=== PATIENT | female | born 1990 | race Caucasian/White ===

== ENCOUNTER → 2024-09-20 11:04 | Outpatient (REF) | payer OTHER, SELFPAY | LOC: HWRAD 11:04 | PROVIDERS: ATTENDING PHYSICIAN Otolaryngology; FAMILY PHYSICIAN Family Medicine | DX: J32.0 Chronic maxillary sinusitis (principal) | CPT/HCPCS: 70486 ==

== ENCOUNTER 2024-10-08 18:34 | Emergency (ER) | payer OTHER, SELFPAY ==
[2024-10-08] VITALS (7 sets, daily range): BP systolic 97–139; BP diastolic 55–84; BMI 26.4
[2024-10-08] MEDS: TYLENOL 1000 MG PO (18:53)
[2024-10-08 18:56] LABS: % Basophils 0.2 % (0-2); % Immature Granulocytes 0.4 % (0-0.5); % Lymphocytes 6.4 % (20.5-51.1); % Monocytes 5.9 % (1.7-9.3); % Neutrophils 87.1 % (42.2-75.2); Absolute Immature Granulocytes 0.1 10^3/uL (0-0.05); Absolute Lymphocytes 1.2 10^3/uL (1.2-3.4); Absolute Monocytes 1.1 10^3/uL (0.1-0.6); Absolute Neutrophils 16.2 10^3/uL (1.4-6.5); Hematocrit 41.6 % (37.0-47.0); Hemoglobin 14.2 g/dL (12.0-16.0); Mean Corp Hgb Conc. 34.1 g/dL (33.0-37.0); Mean Corpuscular Hgb 29.9 pg (27.0-31.0); Mean Corpuscular Volume 87.6 fL (81.0-99.0); Mean Platelet Volume 9.8 fL (7.4-10.4); Nucleated Red Blood Cells % 0 %; Platelet Count 232 10^3/uL (130-400); Red Blood Cell Count 4.75 10^6/uL (4.20-5.40); White Blood Cell Count 18.6 10^3/uL (4.8-10.8)
[2024-10-08 19:20] LABS: ALT (SGPT) 20 U/L (0-35); AST (SGOT) 23 U/L (14-36); Albumin 4.2 g/dl (3.5-5.0); Alkaline Phosphatase 73 U/L (38-126); Blood Urea Nitrogen 7 mg/dl (7-17); Calcium 8.8 mg/dl (8.4-10.2); Carbon Dioxide 25 mmol/L (22-30); Chloride 99 mmol/L (98-107); Glucose 124 mg/dl (70-99); Potassium 3.7 mmol/L (3.5-5.1); Sodium 136 mmol/L (135-145); Total Bilirubin 0.6 mg/dl (0.2-1.3); Total Protein 7.2 g/dl (6.3-8.2); eGFR > 60.00
--- NOTE | 2024-10-08 19:44 | ED.GENMED ---
History of Present Illness
General
Chief Complaint: Throat Problem
Source: patient
Exam Limitations: none
Time Seen by Provider: 10/08/24 19:34
Nursing documentation reviewed up to this point in time: agreed with
History of Present Illness
History of Present Illness:
34-year-old female with past medical history of anxiety who presents to the emergency department for evaluation of sore throat; she was referred from urgent care with concern for peritonsillar abscess. Patient reports that she has been feeling
unwell for the past 48 hours. She reports that she has had sore throat which is consistent, worse with swallowing and breathing. She reports that she has had dry cough. She says she has had bodyaches, high fever with a Tmax of 103 �F. She went
to urgent care to be evaluated and she says she had a rapid strep test which was positive and they were concerned she could have a [employer] based on exam and was sent to the ER.
Past History
Past History
ED Past Medical History: Psychiatric
ED Past Surgical History: Tonsilectomy
Social History
Tobacco: Non-smoker
Alcohol: Occasional
Drug: Narcotics and IVDA
Personal:
Living: with family
Family History
Family History: Other
Review of Systems
Review of Systems
All Other Systems: ROS reviewed and negative except as documented in HPI and ROS
Constitutional: Reports fever, fatigue and chills
EENT: Reports sore throat and runny nose
Respiratory: Reports cough; Denies trouble breathing
Cardiac: Denies chest pain
ABD/GI: Denies vomiting
Musculoskeletal: Reports muscle pain (Myalgias)
Phy Exam
Physical Exam
Physical Exam:
General: Awake, alert, oriented x3; no acute distress
Head: Normocephalic, atraumatic
Eyes: Conjunctiva normal, pupils equal round and reactive to light bilaterally
Throat: Airway intact, dry mucous membranes, tonsillar erythema and enlargement, left much greater than right with deviation of the uvula towards the right
Neck: Trachea midline, left greater than right cervical adenopathy
Lungs: Clear to auscultation bilaterally, no wheezing, rales, rhonchi; occasional coughing
Heart: Tachycardia with regular rhythm, no murmurs, gallops, or rubs
Neuro: No gross deficits
Skin: no rash
Extremities: Atraumatic, warm well-perfused
Scores
Heart Failure Risk
Heart Failure Risk Score: Not Applicable
Heart Score for Chest Pain Patients
STEMI patient?: Not applicable
Withdrawal Assessment of Alcohol
Withdrawal Assessment Completed?: Not applicable
Sepsis
Sepsis Screening
Sepsis Assessment: Sepsis Ruled Out
Sepsis Screen
Sepsis Screen: Sepsis Ruled Out
Date: 10/09/24
Time: 02:36
Course
Orders/Labs/Results
Orders:
Orders
10/08/24 18:48
CMP [Comprehensive Metabolic Panel] Urgent
Complete Blood Count/With Diff Urgent
10/08/24 18:51
Acetaminophen [Tylenol] 1,000 mg .ROUTE .STK-MED ONE
10/08/24 18:53
Acetaminophen [Tylenol] 1,000 mg PO NOW STA
10/08/24 19:35
CT Neck With Iv Contrast Urgent
Comment:
Reason For Exam: sore throat, tonsillar asymmetry, c/f abscess
Test Result ONCE
10/08/24 19:42
Clindamycin HCl [Cleocin] 450 mg PO NOW STA
Dexamethasone Sod Phosphate [Decadron] 10 mg IV NOW STA
Ketorolac [Toradol] 15 mg IV NOW STA
10/08/24 19:43
0.9% Sodium Chloride 1000 ml [Nss] 1,000 ml IV BOLUS
10/08/24 20:05
HCG, Serum Qualitative Screen Urgent
Monotest Urgent
10/08/24 22:41
CR Chest - 2 Views Urgent
Comment:
Reason For Exam: cough, c/f pneumonia
10/08/24 23:29
Amoxicillin 875 mg/Clav 125 mg [Augmentin 875 mg/125 mg] 1 tablet PO NOW STA
Azithromycin [Zithromax] 500 mg PO NOW STA
10/08/24 23:31
Electrocardiogram (*1) Urgent
Reason for Study: QTc Monitoring
EKG- Treatment ONCE
Abnormal Lab Results
10/08/24
18:48
WBC 18.6 H 10^3/uL
(4.8-10.8)
Abs Immat Gran (auto) 0.1 H 10^3/uL
(0-0.05)
Absolute Neuts (auto) 16.2 H 10^3/uL
(1.4-6.5)
Absolute Monos (auto) 1.1 H 10^3/uL
(0.1-0.6)
Neutrophils % 87.1 H %
(42.2-75.2)
Lymphocytes % 6.4 L %
(20.5-51.1)
Glucose 124 H mg/dl
(70-99)
10/08/24 18:48
10/08/24 18:48
Vital Signs
Initial and Last Documented VS:
Initial Vital Signs
Temp Pulse Resp BP Pulse Ox
39.4 C H 128 18 139/84 98
10/08/24 18:41 10/08/24 18:41 10/08/24 18:41 10/08/24 18:41 10/08/24 18:41
Last Documented Vital Signs
Temp Pulse Resp BP Pulse Ox
36.8 C 80 18 106/67 97
10/08/24 23:59 10/08/24 23:33 10/08/24 18:41 10/09/24 00:00 10/09/24 00:29
MDM/Problems Addressed
Differential Diagnosis Includes:
Peritonsillar abscess, tonsillitis/pharyngitis, RPA
MDM/Problems Addressed:
34-year-old female presents for evaluation of fever, malaise, sore throat over the past 48 hours; sent from urgent care after positive strep test and exam concerning for peritonsillar abscess. She is tachycardic and febrile here; exam as above
notable for uvular deviation and asymmetric tonsils. She had lab work sent in triage including a CBC which showed a leukocytosis to 18.6. CMP no clinically significant abnormalities. Will plan to send for a CT of the neck. Will provide IV
fluids. Treat with Toradol, Decadron, antibiotics. Will monitor closely reassess after the above.
CT of the neck reviewed: Negative for peritonsillar abscess but there was suggestion of pneumonia on lung apices�will check chest x-ray.
Chest x-ray does show signs consistent with perihilar pneumonia. Clinical reassessment patient's vital signs and greatly improved with ED treatment. Her blood pressure is normal, heart rate normal, respiratory rate normal, afebrile, normal pulse
ox on room air. Although she did have a leukocytosis she has no other SIRS criteria present to suggest sepsis from pneumonia. CURB 65 score would be 0. I think she is a reasonable candidate for outpatient antibiotics nevertheless I did offer
admission for observation on IV antibiotics. Patient feels well enough for discharge for trial of oral antibiotics. I did advise her that she should have a follow-up chest x-ray to ensure resolution and that if her symptoms are worsening she
should immediately return to the ER. She received some clindamycin initially for strep but given this finding of pneumonia we will switch to Augmentin and add azithromycin as well.
*Radiology
Radiology exam reviewed: radiology read reviewed
*Pulse Oximetry
Patient hypoxic: no
*EKG
Interpreted by ED Provider?: Yes
Comparison EKG: no changes
Heart Rate: 89
Rate: normal
Rhythm: sinus
Circle: normal axis
Interval: normal interval
QRS Pattern: normal QRS
Ischemia: non-specific ST changes
*Critical Care Note
Total Time (30-74mins, 75-104mins- exclusive of procedures): Not Applicable
Data Reviewed
Source: patient
Patient Management
Escalation/DeEscalation of care consider admission/obs:
Offered admission, using shared decision making opted for discharge on oral antibiotics
ED Attending Note
-
Portions of this chart may have been created with voice recognition software.� Occasional wrong word or��sound alike� substitutions may have occurred due to the inherent limitations of voice recognition software.
Discharge Plan
Departure
Patient Disposition: Home (Routine Discharge)
Date of Disposition: 10/08/24
Time of Disposition: 23:55
Patient with high blood pressure during this ER visit?: No
Discharge Problem:
Acute tonsillitis, Pneumonia
Instructions: Pneumonia in adults, Strep Throat (DC)
Prescriptions:
New
amoxicillin-pot clavulanate 875-125 mg tablet
1 tab PO BID 7 Days Qty: 14 0RF
azithromycin [Zithromax] 250 mg tablet
250 mg PO DAILY Qty: 4 0RF
No Action
alprazolam 0.5 MG tablet
1 mg PO TID
Patient Comments:
12/19 Mother stated Pt. takes her boyfriend's Xanax
Referrals:
Annetta Medina MD [Family Provider] - Follow up in 2-3 days
Activity Restrictions/Additional Instructions:
You were seen in the emergency room and diagnosed with strep throat as well as pneumonia. You were given medicines here in the emergency room and prescribed antibiotics which she should take as prescribed. It is very important that if your
symptoms are getting worse at any point you should return immediately to the emergency room, especially if you are having worsening shortness of breath or chest pain. You should have a follow-up chest x-ray within the next 7 to 10 days to ensure
that your pneumonia is improving. You should call to schedule an appoint with your primary doctor to have this test done. You should take Tylenol and ibuprofen to control your fever and drink plenty of fluids.
Thank you for visiting the Emergency Department at [facility].
1. Please schedule a follow up appointment as directed. Call first thing tomorrow morning to make an appointment.
2. If indicated, please take your medications as instructed and indicated on discharge paperwork.
3. If any of your symptoms do not improve, or persist, or become more severe within 6-12 hours, please return to the emergency department for further care.
4. Please return to the emergency department if you develop a headache, neck pain/stiffness, fever greater than 100.4F, chest pain, shortness of breath, persistent nausea, vomiting, slurred speech, difficulty walking, numbness/tingling, weakness,
signs of infection or any other symptoms that are worrisome to you.
Please call [phone] if you have any questions.
Interventions
Interventions:
*Risk Screen - Suicide Last Done: 10/08/24 18:41
*General Assessment Last Done: 10/08/24 18:41
*Neglect/Abuse Screening Last Done: 10/08/24 18:41
ED- Fall Risk Assessment Last Done: 10/08/24 20:22
*ED COVID-19 Vaccine History Last Done: 10/08/24 18:41
*Nursing Disposition Last Done: 10/09/24 00:29
ED-EENT Assessment Last Done: 10/08/24 20:22
ED- Pulmonary Assessment Last Done: 10/08/24 20:22
Discharge Date and Time
Discharge Date/Time: 10/09/24 00:33
Print Language: VIETNAMESE
[2024-10-08] MEDS: CLEOCIN 450 MG PO (20:07)
[2024-10-08] MEDS: TORADOL 15 MG IV (20:09)
[2024-10-08] MEDS: DECADRON 10 MG IV (20:10)
[2024-10-08] MEDS: NSS 1000 IV (20:11)
[2024-10-08 20:36] LABS: HCG, Serum Qualitative Screen Negative
[2024-10-08 20:42] LABS: Monotest Negative (Negative)
[2024-10-08] MEDS: ZITHROMAX 500 MG PO (23:39)
[2024-10-08] MEDS: AUGMENTIN 875 MG/125 MG 1 TABLET PO (23:41)
[2024-10-09] VITALS: BP 106/67
== END 2024-10-09 00:33 | disposition home or self-care (01) ==
LOC: EMR 18:34
PROVIDERS: Student in an Organized Health Care Education/Training Program; EMERGENCY PHYSICIAN Emergency Medicine; FAMILY PHYSICIAN Family Medicine
DX: J03.00 Acute streptococcal tonsillitis, unspecified (principal); J18.9 Pneumonia, unspecified organism
CPT/HCPCS: 96374; 96375; 96361; 99284; 70491; 71046; 80053; 84703; 85025; 86308; 93005; Q9967

== ENCOUNTER 2025-03-12 20:02 | Emergency (ER) | payer OTHER, SELFPAY ==
--- NOTE | 2025-03-12 20:05 | EDRN ---
Patient came in with police and is talking to people who aren't there, she just keeps taking off her clothing, with assistance of security and police patient was changed into blue scrubs, police are here and over talking with parents who are filing
302, attempting to redirect patient, however patient is not cooperative or in right state of mind at this time, she keeps talking about someone taking her baby. Parents told crisis that for the past 5 days she has been hearing voices, not eating or
showering or taking care of her kids, nor has she slept much in a few days. Medication ordered to be given at this time as well to attempt to calm patient down.
--- NOTE | 2025-03-12 20:05 | ED.GENMED ---
History of Present Illness
General
Chief Complaint: Crisis Evaluation
Time Seen by Provider: 03/12/25 20:04
History of Present Illness
History of Present Illness:
TIME OF INITIAL ENCOUNTER: 8 PM
HPI: I initially spoke to [facility] police. The patient was found outside screaming in a residential neighborhood not her own. She was ultimately brought to the [facility] for psychiatric evaluation. I spoke to the parents who
tells me that the patient does have a history of anxiety and depression. She is on Suboxone for history of substance abuse. She takes gabapentin, 2 different benzos, Wellbutrin. Her mental status has deteriorated over the last 5 days or so. She
has a boyfriend who is not currently in the picture. She reportedly had a bad reaction to Haldol in the past.
EXAM:
GENERAL: The patient is clearly in a manic state
HEENT: Markedly dry oral mucosa
CARDIOVASCULAR: No murmurs, tachycardic heart rate, regular rhythm, No chest wall tenderness
PULMONARY: Tachypnea related to agitation, breath sounds are clear and equal
ABDOMEN: Soft with no peritoneal signs, no tenderness
NEUROLOGIC: Excellent strength all extremities, no coordination deficits, no clonus
PSYCHIATRIC: Could not answer questions appropriately, manic, pressured speech, does not follow simple commands, appears extremely anxious, tangential thoughts, poor focus
EXTREMITIES: Nontender, no edema, tachycardic all extremities equally
SKIN: No rash, no lesions
NUMBER AND COMPLEXITY OF PROBLEMS ADDRESSED AT THE ENCOUNTER
� Chronic conditions affecting care: Anxiety/depression, history of opioid use disorder on Suboxone
� Acute Exacerbation and/or Progression of Chronic Illness: This is an acute problem
� Differential Diagnosis includes: Acute psychosis, medication interaction, alcohol intoxication, infection unlike
AMOUNT AND/OR COMPLEXITY OF DATA TO BE REVIEWED AND ANALYZED
� I performed an independent evaluation of and my interpretation is:
EKG: Sinus 118, nonspecific ST abnormality
CT:
X-rays:
Laboratory Studies: CBC unremarkable, bicarb 17, CK normal, salicylates and acetaminophen undetected, no alcohol detected, UDS pending
Other:
� Review of other/old records: I reviewed records, the patient was here in 2017 after an unintentional heroin overdose who briefly was given compressions in the setting of depression and was seen by crisis at that time
but patient was ultimately discharged. At that time she had a dystonic reaction to Haldol
� Clinical information was obtained by an independent historian: I spoke to parents and policeman from [facility]
� Prescriptions/Medications Considered but not given:
� Further testing considered but not performed:
RISK OF COMPLICATIONS AND/OR MORBIDITY OR MORTALITY OF PATIENT MANAGEMENT
� Social determinants of health affecting care: Former history of drug abuse unclear of recent use
� Discussion with other providers: I spoke to crisis
� Escalation of care including admission/observation vs risk of discharge considered:
ANY OTHER UPDATES:
9 PM: I reassessed patient, patient appears slightly more sedate but appears delusional and paranoid. Poor focus and logic.
12 AM: Overall improving. Seen by telepsych. Recommending inpatient. She did receive Zyprexa initially and then benzos. I do have some concern for the possibility of benzo withdrawal and patient brought this up as well.
1:30 AM: I spoke to crisis and patient has been accepted at [facility] transport between 4 and 5 AM.
Past History
Past History
ED Past Medical History: Psychiatric
ED Past Surgical History: Tonsilectomy
Social History
Tobacco: Non-smoker
Alcohol: Occasional
Drug: Narcotics and IVDA
Personal:
Living: with family
Family History
Family History: Other
Phy Exam
Physical Exam
Physical Exam:
See HPI
Course
Orders/Labs/Results
Orders:
Orders
03/12/25 20:00
1:1 Observation - Suicide/ Violent Behavior As Directed
03/12/25 20:04
Drug Screen, Urine [Urine Drug Abuse Screen] Urgent
Date Specimen was Collected: 03/12/25
Time Specimen was Collected: 20:35
Olanzapine [Zyprexa] 10 mg IM NOW STA
03/12/25 20:05
Test Result ONCE
03/12/25 20:12
Lorazepam [Ativan] 2 mg IV NOW STA
03/12/25 20:15
Electrocardiogram (*1) Urgent
Reason for Study: QTc Monitoring
EKG- Treatment ONCE
03/12/25 20:32
Lorazepam [Ativan] 2 mg IM NOW STA
03/12/25 20:43
Acetaminophen Urgent
Alcohol Urgent
Complete Blood Count/With Diff Urgent
Comprehensive Metabolic Panel Urgent
HCG, Serum Qualitative Screen Urgent
Salicylate Urgent
Total CK [Creatine Phosphokinase] Urgent
03/12/25 20:51
0.9% Sodium Chloride 1000 ml [Nss] 1,000 ml IV BOLUS
03/12/25 21:00
Restraints - Violent As Directed
Restraint Type-: Locked-4 point/4 rails
Apply From (date): 03/12/25
Apply from (time): 21:00
Remove (date): 03/13/25
Remove (time): 01:00
03/12/25 21:01
Lorazepam [Ativan] 2 mg IV NOW STA
03/12/25 23:08
0.9% Sodium Chloride 1000 ml [Nss] 1,000 ml IV BOLUS
03/13/25 02:19
Fentanyl, Urine Urgent
Abnormal Lab Results
03/12/25 03/13/25
20:43 02:19
Absolute Neuts (auto) 7.4 H 10^3/uL
(1.4-6.5)
Absolute Monos (auto) 0.8 H 10^3/uL
(0.1-0.6)
Potassium 3.3 L mmol/L
(3.5-5.1)
Chloride 109 H mmol/L
(98-107)
Carbon Dioxide 17 L mmol/L
(22-30)
Glucose 169 H mg/dl
(70-99)
Salicylates < 1.0 L mg/dl
(2.0-20.0)
Ur Buprenorphine Positive H
(Negative)
Acetaminophen < 10 L ug/ml
(10-30)
U Methamphetamines Scrn Positive H
(Negative)
U Benzodiazepines Scrn Positive H
(Negative)
03/12/25 20:43
03/12/25 20:43
Vital Signs
Pulse: 118
Initial and Last Documented VS:
Initial Vital Signs
Pulse Resp BP Pulse Ox
163 20 201/115 98
03/12/25 20:10 03/12/25 20:10 03/12/25 20:10 03/12/25 20:10
Last Documented Vital Signs
Temp Pulse Resp BP Pulse Ox
36.8 C 124 18 129/90 98
03/12/25 21:00 03/12/25 22:41 03/12/25 22:41 03/12/25 22:41 03/12/25 22:41
*Critical Care Note
Total Time (30-74mins, 75-104mins- exclusive of procedures): Not Applicable
ED Attending Note
-
Portions of this chart may have been created with voice recognition software.� Occasional wrong word or��sound alike� substitutions may have occurred due to the inherent limitations of voice recognition software.
Discharge Plan
Departure
Patient Disposition: Psych Facility
Date of Disposition: 03/13/25
Time of Disposition: 00:03
Patient with high blood pressure during this ER visit?: Yes
Discharge Problem:
Acute psychosis
Prescriptions:
No Action
clonazepam 1 mg Tablet
1 mg PO TID
alprazolam [Xanax] 0.25 mg Tablet
0.25 mg PO PRN PRN (Reason: anxiety)
buprenorphine HCl [Subutex] 8 mg Tablet, Sublingual
8 mg SUBLINGUAL DAILY
buprenorphine HCl [Subutex] 8 mg Tablet, Sublingual
4 mg SUBLINGUAL HS
bupropion HCl [Wellbutrin XL] 300 mg Tablet Extended Release 24 Hr
300 mg PO DAILY
Referrals:
UNKNOWN,NO INTERVIEW [Family Provider] -
Interventions
Interventions:
*Risk Screen - Suicide Last Done: 03/12/25 20:10
*General Assessment Last Done: 03/12/25 20:10
*Neglect/Abuse Screening Last Done: 03/12/25 20:10
*ED- Fall Risk Assessment Last Done: 03/12/25 20:10
*ED COVID-19 Vaccine History Last Done: 03/13/25 03:32
*Nursing Disposition Last Done: 03/13/25 03:32
ED-Psychological Assessment Last Done: 03/12/25 20:30
Discharge Date and Time
Discharge Date/Time: 03/13/25 03:33
Print Language: KINYARWANDA
[2025-03-12] MEDS: ZYPREXA 10 MG IM (20:07)
[2025-03-12 20:10] VITALS: BP 201/115
--- NOTE | 2025-03-12 20:30 | EDRN ---
Patient is still not calming down at this time, IM Ativan ordered to be given, if this doesn't work patient will have to be placed into restraints for safety reasons, security is in the room with patient as well as nursing staff, police are also
here, will continue to monitor patient and see if medication will work to calm patient down, she is currently still talking in circles to people who are not here and not making much sense, offered patient a sip of water as her lips and mouth are
very dry, when giving her a sip of water noted a pill in her mouth which was not given by police nor hospital staff, asked patient what it was she states 'lorazepam, my mom gave it to me' spoke with crisis where mother still is, mom reportedly gave
patients boyfriend, the mothers lorazepam pill to give to the patient it was a 0.5mg dose and is not the patient's prescription, it is the mothers.
[2025-03-12] MEDS: ATIVAN 2 MG IM (20:33)
--- NOTE | 2025-03-12 20:45 | EDRN ---
Police removed handcuffs from patient, patient has been pulling on them back on forth, bruising noted on forearms from the handcuffs, no cuts or abrasions noted in the area, will monitor and re-assess area.
[2025-03-12 20:49] VITALS: BMI 28.3
[2025-03-12 20:51] LABS: % Basophils 0.4 % (0-2); % Eosinophils 0.5 % (0-6); % Immature Granulocytes 0.3 % (0-0.5); % Lymphocytes 21.2 % (20.5-51.1); % Monocytes 7.9 % (1.7-9.3); % Neutrophils 69.7 % (42.2-75.2); Absolute Eosinophils 0.1 10^3/uL (0-0.7); Absolute Lymphocytes 2.2 10^3/uL (1.2-3.4); Absolute Monocytes 0.8 10^3/uL (0.1-0.6); Absolute Neutrophils 7.4 10^3/uL (1.4-6.5); Hematocrit 40.4 % (37.0-47.0); Mean Corp Hgb Conc. 34.7 g/dL (33.0-37.0); Mean Corpuscular Hgb 28.5 pg (27.0-31.0); Mean Corpuscular Volume 82.1 fL (81.0-99.0); Mean Platelet Volume 10.3 fL (7.4-10.4); Nucleated Red Blood Cells % 0 %; Platelet Count 257 10^3/uL (130-400); Red Blood Cell Count 4.92 10^6/uL (4.20-5.40); Red Cell Dist. Width 12.6 % (11.5-14.5); White Blood Cell Count 10.5 10^3/uL (4.8-10.8)
[2025-03-12] MEDS: ATIVAN 2 MG IV (20:51)
[2025-03-12] MEDS: NSS 1000 IV ×2 (20:52→23:20)
[2025-03-12 21:03] LABS: Chloride 109 mmol/L (98-107); Potassium 3.3 mmol/L (3.5-5.1); Sodium 140 mmol/L (135-145)
[2025-03-12 21:06] LABS: AST (SGOT) 23 U/L (14-36); Acetaminophen < 10 ug/ml (10-30); Albumin 4.7 g/dl (3.5-5.0); Alkaline Phosphatase 69 U/L (38-126); Blood Urea Nitrogen 15 mg/dl (7-17); Calcium 9.7 mg/dl (8.4-10.2); Carbon Dioxide 17 mmol/L (22-30); Creatine Phosphokinase 94 U/L (30-135); Estimated Creatinine Clearance 89 ml/min; Glucose 169 mg/dl (70-99); Salicylate < 1.0 mg/dl (2.0-20.0); Total Bilirubin 0.8 mg/dl (0.2-1.3); Total Protein 7.7 g/dl (6.3-8.2); eGFR > 60.00
[2025-03-12 21:07] LABS: Alcohol None Detected
[2025-03-12 21:09] LABS: HCG, Serum Qualitative Screen Negative
[2025-03-12 21:24] LABS: ALT (SGPT) < 30 U/L (0-35)
[2025-03-12 22:41] VITALS: BP 129/90
--- NOTE | 2025-03-12 23:00 | EDRN ---
Patient waiting for Telepsych, asked patient if she could urinate, patient states she would try, placed socks on patient and removed the remaining restraints from patient, verbalized with patient if this goes well, restraints can remain off, patient
ambulated into the restroom with stable gait and cooperative, patient was unable to urinate however will try again, while in bathroom patient verbalizes not being sure what happened, states her boyfriend gave her a pill but she doesn't know what it
was, patient back in bed provided water, Telepsych in progress at this time as well once back in bed. notified of this.
--- NOTE | 2025-03-12 23:42 | EDRN ---
Patient provided with a turkey sandwich and drink of water, as well as a toothbrush and toothpaste, warm blanket provided, patient doing much better at this time, informed patient i would keep her updated as i received more information, patient
eating her sandwich at this time, 1:1 remained at this time, safe environment maintained will continue to monitor
--- NOTE | 2025-03-13 00:35 | EDRN ---
Patient walked into the bathroom to attempt to provide a urine specimen, was unable to go, she did brush her teeth while she was in there and reports she will try again in a bit, crisis updated, patients med list updated as well.
--- NOTE | 2025-03-13 02:38 | EDRN ---
Patient ambulated to restroom to get a urine specimen, she was finally able to obtain sample, crisis also came in and told her she was accepted to a facility, patient back in bed with security remaining outside room as 1:1, another warm blanket
provided, informed transport should be here around 0430.
[2025-03-13 02:46] LABS: Amphetamines Negative (Negative); Barbiturates Negative (Negative); Benzodiazepines Positive (Negative); Buprenorphine Positive (Negative); Cocaine Negative (Negative); Marijuana Negative (Negative); Methadone Negative (Negative); Methamphetamines Positive (Negative); Opiates Negative (Negative); Phencyclidine Negative (Negative); Tricyclic Antidepressants Negative (Negative)
[2025-03-13 03:02] LABS: Fentanyl, Urine Negative (Negative)
== END 2025-03-13 03:33 ==
LOC: EMR 20:02
PROVIDERS: EMERGENCY PHYSICIAN Emergency Medicine
DX: F23 Brief psychotic disorder (principal); F41.8 Other specified anxiety disorders; Z88.8 Allergy status to other drugs, medicaments and biological substances
CPT/HCPCS: 99283; 96374; 96376; 96372; 96361; 80053; 80143; 80179; 80306; 80307; 82077; 82550; 84703; 85025; 93005

== ENCOUNTER 2025-10-12 10:00 | Emergency (ER) | payer OTHER, SELFPAY ==
[2025-10-12 10:05] VITALS: BP 113/68
[2025-10-12 10:37] LABS: Hematocrit 42.9 % (37.0-47.0); Hemoglobin 14.8 g/dL (12.0-16.0); Mean Corp Hgb Conc. 34.5 g/dL (33.0-37.0); Mean Corpuscular Volume 85.8 fL (81.0-99.0); Nucleated Red Blood Cells % 0 %; Platelet Count 289 10^3/uL (130-400); Red Cell Dist. Width 12.5 % (11.5-14.5)
[2025-10-12 10:47] LABS: HCG, Serum Qualitative Screen Negative
[2025-10-12 10:52] LABS: ALT (SGPT) 22 U/L (0-35); AST (SGOT) 19 U/L (14-36); Albumin 4.8 g/dl (3.5-5.0); Alkaline Phosphatase 48 U/L (38-126); Blood Urea Nitrogen 12 mg/dl (7-17); Calcium 10.1 mg/dl (8.4-10.2); Carbon Dioxide 31 mmol/L (22-30); Chloride 102 mmol/L (98-107); Glucose 97 mg/dl (70-99); Potassium 4.3 mmol/L (3.5-5.1); Sodium 141 mmol/L (135-145); Total Protein 8.1 g/dl (6.3-8.2); eGFR > 60.00
--- NOTE | 2025-10-12 11:14 | ED.GENMED ---
History of Present Illness
General
Chief Complaint: Change in Mental Status
Source: patient and family
Time Seen by Provider: 10/12/25 10:12
History of Present Illness
History of Present Illness:
35-year-old female with past medical history of anxiety and depression, remote history of substance abuse presents to the ER with boyfriend for evaluation of what he believes to be increased depression, being withdrawn, not taking care of herself
noting that patient has just been laying around the house not eating or drinking, showering and generalized fatigue. Boyfriend contacted [facility] earlier in the week and medications were changed, patient was given prescription for Xanax but
states this does not seem to be helping. Patient without any fevers or infectious symptoms. History was very limited from the patient as she was only answering with a few words to 1 sentence. History of requiring inpatient treatment in the past.
Patient denies any current active substance use or alcohol use.
Past History
Past History
ED Past Medical History: Psychiatric
ED Past Surgical History: Tonsilectomy
Social History
Tobacco: Non-smoker
Alcohol: Occasional
Drug: Former user
Personal: Partner
Living: with family
Family History
Family History: Other
Review of Systems
Review of Systems
All Other Systems: ROS reviewed and negative except as documented in HPI and ROS
Phy Exam
Physical Exam
Physical Exam:
GENERAL: Alert , in no apparent distress, somewhat unkempt, withdrawn and not making much eye contact, very soft-spoken
EYE: conjunctiva clear
Head: Normocephalic atraumatic
NECK: Supple,
ENT: mmm.
LUNGS: no acute respiratory distress
NEUROLOGICAL: Alert and oriented
SKIN: Warm and dry, skin intact.
MUSCULOSKELETAL: well perfused.
PSYCH: Somewhat depressed and withdrawn affect
Scores
Heart Failure Risk
Heart Failure Risk Score: Not Applicable
Heart Score for Chest Pain Patients
STEMI patient?: Not applicable
Withdrawal Assessment of Alcohol
Withdrawal Assessment Completed?: Not applicable
Course
Orders/Labs/Results
Orders:
Orders
10/12/25 10:20
PSYCHIATRY CONSULT Urgent
Consulting Provider: Devin Couch
Was physician already notified: Yes
Crisis Consult Urgent
Reason for Consult: depression
10/12/25 10:28
Test Result ONCE
10/12/25 10:29
Complete Blood Count/With Diff Urgent
Comprehensive Metabolic Panel Urgent
HCG, Serum Qualitative Screen Urgent
10/12/25 12:47
Drug Screen, Urine [Urine Drug Abuse Screen] Urgent
Date Specimen was Collected: 10/12/25
Time Specimen was Collected: 12:45
Fentanyl, Urine Urgent
Abnormal Lab Results
10/12/25 10/12/25
10:29 12:47
MPV 10.5 H fL
(7.4-10.4)
Carbon Dioxide 31 H mmol/L
(22-30)
Ur Buprenorphine Positive H
(Negative)
U Benzodiazepines Scrn Positive H
(Negative)
10/12/25 10:29
10/12/25 10:29
Vital Signs
Initial and Last Documented VS:
Initial Vital Signs
Temp Pulse Resp BP Pulse Ox
98 F 80 16 113/68 98
10/12/25 10:05 10/12/25 10:05 10/12/25 10:05 10/12/25 10:05 10/12/25 10:05
Last Documented Vital Signs
Temp Pulse Resp BP Pulse Ox
98 F 63 16 93/59 97
10/12/25 10:05 10/12/25 13:09 10/12/25 13:09 10/12/25 13:09 10/12/25 13:09
MDM/Problems Addressed
Differential Diagnosis Includes:
Exacerbation of patient's depression
Medication side effects
Less concern for an acute infectious etiology
Anorexia/bulimia
Drug relapse
MDM/Problems Addressed:
35-year-old female presenting to the emergency department with boyfriend for evaluation due to reported increased depression and not caring for herself at home over the last few weeks. Significant other was concern for dehydration. Patient
hemodynamically stable. I do have concern for increasing depression and patient's lack of self-care. Crisis evaluation ordered.
Chronic conditions affecting care: Psychiatric illness
Acute Exacerbation and/or Progression of Chronic Illness: Psychiatric illness
*Pulse Oximetry
SaO2: 98
Oxygen Mode of Delivery: Room air
Patient hypoxic: no
*Critical Care Note
Total Time (30-74mins, 75-104mins- exclusive of procedures): Not Applicable
Patient Management
Discussion with other providers: Imaging Nurse
Escalation/DeEscalation of care consider admission/obs:
Patient seen by psychiatry, please see their consultation note. They do feel it is okay for patient to be discharged home, they will be arranging for an expedited outpatient office visit for further follow-up. Patient and family aware of return
precautions to the ER
ED Attending Note
-
Portions of this chart may have been created with voice recognition software.� Occasional wrong word or��sound alike� substitutions may have occurred due to the inherent limitations of voice recognition software.
Discharge Plan
Departure
Patient Disposition: Home (Routine Discharge)
Date of Disposition: 10/12/25
Time of Disposition: 13:05
Patient with high blood pressure during this ER visit?: No
Discharge Problem:
Benzodiazepine intoxication
Instructions: Benzodiazepine use disorder - ED (DC)
Prescriptions:
No Action
clonazepam 1 mg Tablet
1 mg PO TID
alprazolam [Xanax] 0.25 mg Tablet
0.25 mg PO PRN PRN (Reason: anxiety)
buprenorphine HCl [Subutex] 8 mg Tablet, Sublingual
8 mg SUBLINGUAL DAILY
buprenorphine HCl [Subutex] 8 mg Tablet, Sublingual
4 mg SUBLINGUAL HS
bupropion HCl [Wellbutrin XL] 300 mg Tablet Extended Release 24 Hr
300 mg PO DAILY
Referrals:
Annetta Medina MD [Family Provider]
Interventions
Interventions:
*Risk Screen - Suicide Last Done: 10/12/25 10:05
*General Assessment Last Done: 10/12/25 10:05
*Neglect/Abuse Screening Last Done: 10/12/25 10:05
[facility] Fall Risk Assessment Tool Last Done: 10/12/25 10:33
*Nursing Disposition Last Done: 10/12/25 13:10
ED-Psychological Assessment Last Done: 10/12/25 10:33
ED- Neurological Assessment Last Done: 10/12/25 10:33
Discharge Date and Time
Discharge Date/Time: 10/12/25 13:10
Print Language: POLISH
[2025-10-12 13:09] VITALS: BP 93/59
--- NOTE | 2025-10-12 13:23 | CON.MD ---
Consultation - Medical
-
patient seen chart reviewed. bf at bedside as well as two toddlers. spoke to jj charles and jj carney who have rx patient in the past. also spoke with patient's mother sary rizzo. this consult done today oct [id number]. patient is a 35 year
old woman with a long hx of psych illness as well as substance abuse. she has been sober i am told for a few years taking buprenorphine. she has since august not been herself. she has been agitated at times. withdrawn at times. she says she is
sleeping okay and eating adequately. she did not look undernourished and her lab work was fine. she saw jj charles yesterday. he had seen her recently and prescribed seroquel 50 mg inc to 100 mg. mother insisted it made her more agitated. mr
melvin thinks it maybe just was not enough and he suggested olanzapine which has not been filled 2.5 mg. he also gave her xanax as patient and family allege ativan not working. patient has hx of what appears to be catatonia in the past hence benzos
(?) pdmp shows a number of benzo scrips including klonopin ativan and xanax over 300 tabs since jul. mom says she took what she could find out of the house (mom is at the house every day to care for patient's kids. (patient never left alone with
kids mom and her dad days bf at night). the patient denies that there is anything wrong although she has a glassy eyed appearance. she is fully oriented and knows the president but seems distant. she does not feel anything is wrong. she denies
hallucinations no ideas of ref expressed. denies she is depressed or suicidal. bf seems to attribute it to her not being on antidep but mr charles and ms rommel surmise antidep made her worse. patient denies excess use of bzp. family says patient
is always vaping. mom says sister worries patient vaping kratom which patient denies
past psych hx patient has had overdoses in the distant past years ago. she was hosp about four x including for psychosis. she is seen at [facility] last seen yesterday. she saw ms rommel who was on family leave in jul then started w mr charles she has
been on seroquel zyprexa vraylar. allegedly allergic to haldol and record says risperdal 'made her catatonic' she does not stay on antidep. also was on lexapro and wellbutrin post depression anxiety hx ptsd hx trauma
medical hx healthy labs ok tox pending
fh denied
substance abuse see above. patient w hx drug use many years ago including opiates and cocaine
social resides w bf of five years. has three kids. disabled
mse alert and ox3 but appears out of it. some latency when asked ? and answers are incomplete. speech sparse nl tone hard to say thought process as she does not say enough denies hallucinations but seemed paranoid aver intell. insight
judgment lacking
dx mental status change could be secondary to psychosis /bipolar disorder w psychosis or drug ingestion (benzos? vaping other substances) or both
hx opiate use disorder (takes buprenorphine
recommendations i suspect there is underlying psychosis w patient perhaps heading to catatonia. she can use benzos as per mr charles but only the xanax he prescribed.. she has had scrips for several bzp's which i would not combine start zyprexa
2.5 mg. monitor re substance abuse. call [facility] tuesday to schedule appt ting. i will send the heavy threader an email to expedite. return to er if things worsen. i would have preferred patient go to hospital to sort this out she refused and no ground
for 302 at this point.
== END 2025-10-12 13:10 | disposition home or self-care (01) ==
LOC: EMR 10:00
PROVIDERS: Physician Assistant Medical; CONSULT PHYSICIAN Psychiatry & Neurology Psychiatry; EMERGENCY PHYSICIAN Emergency Medicine; FAMILY PHYSICIAN Family Medicine
DX: F13.129 Sedative, hypnotic or anxiolytic abuse with intoxication, unspecified (principal); F41.9 Anxiety disorder, unspecified; F32.A Depression, unspecified
CPT/HCPCS: 99283; 80053; 80306; 80307; 84703; 85025

== ENCOUNTER 2025-10-21 05:38 | Emergency (ER) | payer OTHER, SELFPAY ==
[2025-10-21 05:39] VITALS: BP 138/106
[2025-10-21 05:57] VITALS: BMI 20.8
--- NOTE | 2025-10-21 06:43 | EDRN ---
pt arrives to crisis room from triage, unable to follow commands and uncooperative. pt sitting in hallway chair stating 'I just need IV fluid, no no Im so serious, don't take my dad, this is serious.' Pt refusing to get up and walking in hallway.
Security and several nurses escorted pt into crisis room, repeatedly trying to exit. pt is oriented to place, year, month, and season but detached from reality, pt has glazed look and staring into space, appears to be on a substance but denying
drug/alcohol use and became agitated when asked about it. Pt refusing/unable to change into paper scrubs at this time or use bathroom for urine sample. Security at bedside.
--- NOTE | 2025-10-21 08:20 | ED.GENMED ---
History of Present Illness
General
Chief Complaint: Crisis Evaluation
Source: patient
Exam Limitations: none
Time Seen by Provider: 10/21/25 07:03
Nursing documentation reviewed up to this point in time: agreed with
History of Present Illness
History of Present Illness:
Note:
CHIEF COMPLAINT(S)
Confusion and paranoia.
HISTORY OF PRESENT ILLNESS
The patient is a 35-year-old female presenting with confusion and feelings of paranoia. She reports difficulty distinguishing between reality and her perceptions, describing the furniture as confusing and expressing distress about the layout of her
environment. The patient frequently insists she does not want medical intervention or assistance. Despite this, she permitted a limited examination. She also repeatedly denied taking any medication or alcohol but appeared dehydrated with dry oral
mucosa and lips. It was noted that EMS had been called as the patient had expressed a need for help, leading to her transport to the facility.
ADDITIONAL HISTORY OBTAINED FROM SOURCES OTHER THAN THE PATIENT
Per EMS, the patient was reportedly disoriented and had expressed a need for assistance, which prompted them to transport her to the medical facility. No evidence of acute intoxication or ingestion was identified en route.
PHYSICAL EXAM
General: Alert, in mild distress, verbalizing concerns about surroundings.
Skin: Dry, especially around the oral area.
Head: Normocephalic, atraumatic.
Eyes, Ears, Nose, Oral, and Throat: Oral mucosa dry.
Cardiovascular: Normal peripheral perfusion, No edema.
Respiratory: Respirations are non-labored.
Gastrointestinal: Abdomen nondistended.
Back: Normal range of motion, Normal alignment.
Musculoskeletal: Normal ROM, normal strength.
Neurological: Alert and oriented to person, but displays signs of confusion and paranoia. No focal neurological deficit observed.
Psychiatric: Cooperative but anxious, with disorganized thoughts and paranoid ideation.
PLAN
1. Initiate intravenous fluids to address dehydration.
2. Perform a psychiatric evaluation to assess mental status and underlying causes for confusion and paranoia.
3. Continuous monitoring for any changes in mental status or development of additional symptoms.
4. Consider administration of a sedative if the patient becomes increasingly agitated.
DIFFERENTIAL DIAGNOSIS
The Differential Diagnosis includes, in no particular order and is not limited to:
1. Acute Psychosis
2. Dehydration
3. Substance-Induced Psychotic Disorder
4. Anxiety Disorder with Panic Attacks
5. Schizophrenia
6. Substance Withdrawal
7. Delirium
8. Bipolar Disorder with Manic Episode
9. Severe Anxiety or Stress Reaction
10. Thyroid Dysfunction
EKG
My independent EKG interpretation is:
- Time of EK:32 AM
- Rhythm: Sinus rhythm
- Heart Rate: 124 bpm
- Notable Intervals: Long QT interval
- Abnormalities Observed: Tachycardia
EKG
My independent EKG interpretation is:
- Time of EK a.m.
- Rhythm: Sinus tachycardia
- Heart rate: 107 beats per minute
- QT interval: Normal
Disposition:
SUMMARY OF ENCOUNTER
The patient was seen in the emergency department for confusion and paranoia, raising concerns for a possible manic episode with psychotic features. During the evaluation, the patients symptoms of disorganized thoughts and paranoid ideation were
noted. Due to the potential severity of her condition, it was determined that she will be voluntarily committed to a psychiatric facility to ensure appropriate management and treatment. Dr. Lyon was consulted and agreed with the plan to transfer
the patient for psychiatric admission. If the patient refuses voluntary admittance, mandatory hospitalization will be implemented.
DISPOSITION
Transfer for voluntary commitment to a psychiatric facility.
ASSESSMENT
The patients symptoms are consistent with a bipolar disorder, manic episode with psychotic features.
PLAN
1. The patient will be transferred for voluntary psychiatric commitment.
2. Continuous monitoring of mental status changes and administration of appropriate psychiatric treatment in a controlled setting.
MEDICAL DECISION MAKING
-Complexity of Data Reviewed: Differential diagnosis includes acute psychosis, dehydration, substance-induced psychotic disorder, anxiety disorder with panic attacks, schizophrenia, substance withdrawal, delirium, bipolar disorder with manic
episode, severe anxiety or stress reaction, thyroid dysfunction.
Category 3
- Discussion of management with Dr. Lyon, psychiatrist, regarding the need for psychiatric intervention and potential hospitalization due to risks associated with the patients mental state.
DIAGNOSIS
Bipolar disorder, current episode manic severe with psychotic features (ICD-10: F31.2).
Past History
Past History
ED Past Medical History: Psychiatric
ED Past Surgical History: Tonsilectomy
Social History
Tobacco: Non-smoker
Alcohol: Occasional
Drug: Former user
Personal: Partner
Living: with family
Family History
Family History: Other
Phy Exam
Physical Exam
Physical Exam:
.
Course
Orders/Labs/Results
Orders:
Orders
10/21/25 07:34
Test Result ONCE
10/21/25 08:18
PSYCHIATRY CONSULT Urgent
Consulting Provider: Pedro Luis Villarreal
Was physician already notified: Yes
Reason for consult: manic behavior
Crisis Consult Urgent
Reason for Consult: agitated, manic
10/21/25 08:43
Acetaminophen Urgent
Alcohol Urgent
Complete Blood Count/With Diff Urgent
Comprehensive Metabolic Panel Urgent
HCG, Serum Qualitative Screen Urgent
Comment: ADD
Salicylate Urgent
10/21/25 08:45
0.9% Sodium Chloride 1000 ml [Nss] 1,000 ml IV BOLUS
10/21/25 09:01
Add On- LAB Urgent
Tests Added?: hcg qual
10/21/25 09:19
Electrocardiogram (*1) Urgent
Reason for Study: Chest Pain
EKG- Treatment ONCE
10/21/25 09:59
Alprazolam [Xanax] 1 mg PO STAT STA
10/21/25 10:20
Fentanyl, Urine Urgent
Urine Drug Abuse Screen Urgent
Date Specimen was Collected: 10/21/25
Time Specimen was Collected: 10:05
10/21/25 10:45
Electrocardiogram (*1) Urgent
Reason for Study: QTc Monitoring
EKG- Treatment ONCE
Alprazolam [Xanax] 1 mg PO STAT STA
Abnormal Lab Results
10/21/25 10/21/25
08:43 10:20
WBC 14.7 H 10^3/uL
(4.8-10.8)
Abs Immat Gran (auto) 0.1 H 10^3/uL
(0-0.05)
Absolute Neuts (auto) 12.1 H 10^3/uL
(1.4-6.5)
Neutrophils % 82.0 H %
(42.2-75.2)
Lymphocytes % 13.3 L %
(20.5-51.1)
Carbon Dioxide 21 L mmol/L
(22-30)
BUN 5 L mg/dl
(7-17)
Creatinine 0.4 L mg/dL
(0.6-1.0)
Glucose 180 H mg/dl
(70-99)
Total Protein 8.4 H g/dl
(6.3-8.2)
Albumin 5.2 H g/dl
(3.5-5.0)
Salicylates < 1.0 L mg/dl
(2.0-20.0)
Ur Buprenorphine Positive H
(Negative)
Acetaminophen < 10 L ug/ml
(10-30)
U Benzodiazepines Scrn Positive H
(Negative)
10/21/25 08:43
10/21/25 08:43
Vital Signs
Initial and Last Documented VS:
Initial Vital Signs
Temp Pulse Resp BP Pulse Ox
98.4 F 120 20 138/106 98
10/21/25 05:39 10/21/25 05:39 10/21/25 05:39 10/21/25 05:39 10/21/25 05:39
Last Documented Vital Signs
Temp Pulse Resp BP Pulse Ox
98.4 F 120 20 138/106 98
10/21/25 05:39 10/21/25 05:39 10/21/25 05:39 10/21/25 05:39 10/21/25 08:21
*Pulse Oximetry
SaO2: 98
Oxygen Mode of Delivery: Room air
Patient hypoxic: no
*Critical Care Note
Total Time (30-74mins, 75-104mins- exclusive of procedures): Not Applicable
ED Attending Note
-
Portions of this chart may have been created with voice recognition software.� Occasional wrong word or��sound alike� substitutions may have occurred due to the inherent limitations of voice recognition software.
Discharge Plan
Departure
Patient Disposition: Psych Facility
Date of Disposition: 10/21/25
Time of Disposition: 10:20
Patient Status:: Psych
Patient with high blood pressure during this ER visit?: Yes
Condition: Good
Discharge Problem:
Bipolar disorder with psychotic features
Prescriptions:
No Action
clonazepam 1 mg Tablet
1 mg PO TID
alprazolam [Xanax] 0.25 mg Tablet
0.25 mg PO PRN PRN (Reason: anxiety)
buprenorphine HCl [Subutex] 8 mg Tablet, Sublingual
8 mg SUBLINGUAL DAILY
buprenorphine HCl [Subutex] 8 mg Tablet, Sublingual
4 mg SUBLINGUAL HS
bupropion HCl [Wellbutrin XL] 300 mg Tablet Extended Release 24 Hr
300 mg PO DAILY
Referrals:
UNKNOWN,NO INTERVIEW [Family Provider]
Interventions
Interventions:
*General Assessment Last Done: 10/21/25 05:58
*Neglect/Abuse Screening Last Done: 10/21/25 05:58
*ED COVID-19 Vaccine History Last Done: 10/21/25 05:58
*ED Influenza Vaccine History Last Done: 10/21/25 05:58
[facility] Fall Risk Assessment Tool Last Done: 10/21/25 05:58
*Risk Screen - Suicide (C-SSRS) Last Done: 10/21/25 09:00
ED-Psychological Assessment Last Done: 10/21/25 06:00
Discharge Date and Time
Print Language: POLISH
[2025-10-21 08:53] LABS: Hematocrit 39.9 % (37.0-47.0); Hemoglobin 14.0 g/dL (12.0-16.0); Mean Corp Hgb Conc. 35.1 g/dL (33.0-37.0); Mean Corpuscular Volume 82.8 fL (81.0-99.0); Nucleated Red Blood Cells % 0 %; Platelet Count 372 10^3/uL (130-400); Red Cell Dist. Width 11.9 % (11.5-14.5)
[2025-10-21] MEDS: NSS 1000 IV (08:56)
[2025-10-21 09:08] LABS: ALT (SGPT) 22 U/L (0-35); AST (SGOT) 21 U/L (14-36); Acetaminophen < 10 ug/ml (10-30); Albumin 5.2 g/dl (3.5-5.0); Alkaline Phosphatase 86 U/L (38-126); Blood Urea Nitrogen 5 mg/dl (7-17); Calcium 10.1 mg/dl (8.4-10.2); Carbon Dioxide 21 mmol/L (22-30); Chloride 100 mmol/L (98-107); Estimated Creatinine Clearance 116 ml/min; Glucose 180 mg/dl (70-99); Potassium 3.7 mmol/L (3.5-5.1); Salicylate < 1.0 mg/dl (2.0-20.0); Sodium 136 mmol/L (135-145); Total Protein 8.4 g/dl (6.3-8.2); eGFR > 60.00
[2025-10-21] MEDS: XANAX 1 MG PO ×2 (10:16→10:51)
[2025-10-21 10:17] LABS: HCG, Serum Qualitative Screen Negative
--- NOTE | 2025-10-21 13:50 | CS.PSYCHR ---
Consult Summary - Psychiatry
-
pt seen in ED for consutation for crisis evaluation
Brought to ED voluntarily by police after she had called them repeatedly at 30 for unclear reasons. Told cleaner touch up worker she was upset about grandparents having furniture in the basement. Very difficult to get story from patient initially babbling and
not answering quetions.
Had been in seen in Crisis 10/12, admitssion recommended but pt declined, judged to not be 302 able at that time.
Pr]er mother has had many inpatient stays last at [facility] (does not want her to return there, 'she was catatonic for a month. Prefers [facility] or [facility].)
Has had very long history of substance use disorder, repeated overdoses (at one point required CPR) currently in outpatient treatment at [facility]. Has been on many different drug regimens, reportedly 'nothing works' according to
mother, but it is unclear if she has taken meds as prescribed for appropriate period. Currently on wellbutrin, seroquel, subutex, xanax 1 mg tid
Lives with boyfriend, parents close by and watch her children (3 and 8 yo.)
Born and raised in [place] graduated [employer] for [employer].
Not currently working outside home. .
Multiple family members with mental illness and addiction.
I spoke with mother who reports pt doing poorly since at least August. Mother repeatedly blames medication trials.
Has significant substance use disorder history, mainly opioids, has been clean recently.
On exam pt is dazed appearing, staring glassy eyed. Talking to self non-stop, only began responding to questions when confronted with louder voice. Even then, odd responses--I introduced myself, showed my ID badge. Pt responded 'I don't want to be a
physician' (word on my badge.) When asked which medication she wanted, responded Xanax.
After xanax administration pt able to respond to some questions, but not aways pertinent responses. When asked why she came, talked about being healthy and needing us to verify her 1 hour of community service.
Impression: bipolar manic
Rec. Will need inpatient care. Pt states she will sign 201, but appears concerned.
Would 302 if declines 201 cue ot poor self care
[2025-10-21 15:35] VITALS: BP 168/109
== END 2025-10-21 21:53 ==
LOC: EMR 05:38
PROVIDERS: CONSULT PHYSICIAN Psychiatry & Neurology Psychiatry; EMERGENCY PHYSICIAN Emergency Medicine
DX: F31.2 Bipolar disorder, current episode manic severe with psychotic features (principal); E86.0 Dehydration
CPT/HCPCS: 99285; 96360; 80053; 80143; 80179; 80306; 80307; 82077; 84703; 85025; 93005